=== PATIENT | male | born 1990 | race African-American/Black ===

== ENCOUNTER 2016-07-19 08:55 | Observation (INO) | payer OTHER ==
[2016-07-19] MEDS ORDERED: Ondansetron INJ* 2 MG/ML VIAL IV ONE (09:22)
[2016-07-19] MEDS: NS 0.9% 1000 ML* 2,000 ML IV ONE ×2 (10:25→11:20)
[2016-07-19 10:42] LABS: Hematocrit 53 % (42-52); Hemoglobin 18.3 g/dl (14.0-18.0); Mean Corpuscular HGB Conc 35 g/dl (31-36); Mean Corpuscular Hemoglobin 30 pg (27-31); Mean Corpuscular Volume 86 fL (80-94); Mean Platelet Volume 8 um3 (7.4-10.4); Red Blood Count 6.15 10^6/ul (4.0-5.4); Red Cell Distribution Width 13 % (10.5-15); White Blood Count 9.1 10^3/ul (3.5-10.8)
[2016-07-19 10:58] LABS: Albumin 5.8 g/dL (3.2-5.2); BUN/Creatinine Ratio 17.6 (8-20); C Reactive Protein 16.03 mg/L (< 5.00); Calcium 11.2 mg/dL (8.6-10.3); EGFR African American 86.5 (>60); EGFR Non-African American 67.2 (>60); Globulin 4.1 g/dL (2-4); Potassium 3.2 mmol/L (3.5-5.0); Total Bilirubin 1.1 mg/dL (0.2-1.0); Total Protein 9.9 g/dL (6.4-8.9)
[2016-07-19] MEDS ORDERED: Potassium Chlor TAB* 20 MEQ TAB.ER PO ONE (11:01)
--- NOTE | 2016-07-19 12:57 | ED ---
Influenza-Like Illness - HPI Summary HPI Summary: Patient presents with approximately 5 days of URI symptoms and he began vomiting this AM as well. He has not been eating or drinking well over this time. He has lost weight without trying over the last few months as per mom, and is rather thin in the first place. He denies fever, chills, abdominal or back pain, CP or SOB. No headache or neck pain. - History of Current Complaint Chief Complaint: EDGeneral Time Seen by Provider: 07/19/16 09:11 Hx Obtained From: Patient, Family/Biology Teacher Onset/Duration: Gradual Onset Severity: Severe Associated Signs & Symptoms: Nasal Congestion, Vomiting Related Hx: Possible Flu/Infectious Exposure - Allergy/Home Medications Allergies/Adverse Reactions: Allergies Allergy/AdvReac Type Severity Reaction Status Date / Time Sulfa Antibiotics Allergy Unknown Verified 07/19/16 10:30 Reaction Details PMH/Surg Hx/FS Hx/Imm Hx Respiratory History: Reports: Hx Asthma Infectious Disease History: Yes Infectious Disease History: Denies: Traveled Outside the [place] in Last 30 Days - Family History Known Family History: Positive: None - Social History Lives: With Family Alcohol Use: Rare Substance Use Type: Reports: Marijuana Smoking Status (MU): Light Every Day Tobacco Smoker Cessation Counseling: Patient Advised to Stop Review of Systems Positive: Chills, Fatigue. Negative: Fever Positive: Nasal Discharge Positive: Cough Positive: Vomiting, Nausea All Other Systems Reviewed And Are Negative: Yes Physical Exam Vital Signs On Initial Exam: Initial Vitals Temp Pulse Resp BP Pulse Ox 98.7 F 102 28 138/85 100 07/19/16 08:57 07/19/16 08:57 07/19/16 08:57 07/19/16 08:57 07/19/16 08:57 Diagnostics - Vital Signs Vital Signs Temp Pulse Resp BP Pulse Ox 07/19/16 08:57 98.7 F 102 28 138/85 100 - Laboratory Lab Results: Lab Results 07/19/16 07/19/16 Range/Units 10:20 10:20 WBC 9.1 (3.5-10.8) 10^3/ul RBC 6.15 H (4.0-5.4) 10^6/ul Hgb 18.3 H (14.0-18.0) g/dl Hct 53 H (42-52) % MCV 86 (80-94) fL MCH 30 (27-31) pg MCHC 35 (31-36) g/dl RDW 13 (10.5-15) % Plt Count 296 (150-450) 10^3/ul MPV 8 (7.4-10.4) um3 Neut % (Auto) 83.5 H (38-83) % Lymph % (Auto) 8.2 L (25-47) % [place] % (Auto) 7.0 (1-9) % Eos % (Auto) 0.3 (0-6) % Baso % (Auto) 1.0 (0-2) % Absolute Neuts (auto) 7.6 (1.5-7.7) 10^3/ul Absolute Lymphs (auto) 0.7 L (1.0-4.8) 10^3/ul Absolute Monos (auto) 0.6 (0-0.8) 10^3/ul Absolute Eos (auto) 0 (0-0.6) 10^3/ul Absolute Basos (auto) 0.1 (0-0.2) 10^3/ul Absolute Nucleated RBC 0 10^3/ul Nucleated RBC % 0 Sodium 139 (133-145) mmol/L Potassium 3.2 L (3.5-5.0) mmol/L Chloride 99 L (101-111) mmol/L Carbon Dioxide 21 L (22-32) mmol/L Anion Gap 19 H (2-11) mmol/L BUN 23 (6-24) mg/dL Creatinine 1.31 H (0.67-1.17) mg/dL Est GFR ( Amer) 86.5 (>60) Est GFR (Non-Af Amer) 67.2 (>60) BUN/Creatinine Ratio 17.6 (8-20) Glucose 105 H (70-100) mg/dL Calcium 11.2 H (8.6-10.3) mg/dL Total Bilirubin 1.10 H (0.2-1.0) mg/dL AST 26 (13-39) U/L ALT 24 (7-52) U/L Alkaline Phosphatase 61 (34-104) U/L Troponin I 0.00 (<0.04) ng/mL C-Reactive Protein 16.03 H (< 5.00) mg/L Total Protein 9.9 H (6.4-8.9) g/dL Albumin 5.8 H (3.2-5.2) g/dL Globulin 4.1 H (2-4) g/dL Albumin/Globulin Ratio 1.4 (1-3) Result Diagrams: 07/19/16 10:20 07/19/16 10:20 Lab Statement: Any lab studies that have been ordered have been reviewed, and results considered in the medical decision making process. - EKG No standard instances Cardiac Rate: Tachycardia EKG Rhythm: Sinus Rhythm ST Segment: Normal Ectopy: None Re-Evaluation - Re-Evaluation First Eval Re-Evaluation Time: 10:50 Change: Worse Comment: patient vasovagaled when IV was being placed. He complained of CP and back pain afterwards. Second Eval Re-Evaluation Time: 12:30 Change: Improved Comment: patient feeling somewhat better, but still has nausea and no appetite. Flu Symptom Course/Dx - Diagnoses Differential Diagnosis/HQI/PQRI: Positive: Bronchitis, Influenza, Pneumonia, RSV , Upper Respiratory Infection Provider Diagnoses: Nausea & vomiting - Physician Notifications Discussed Care Of Patient With: Dr. Aponte, emergency department attending; Dr. Santos, hospitalist. Instructed by Provider To: Admit As Observation Discharge - Discharge Plan Condition: Stable Disposition: ADMITTED TO [facility]
[2016-07-19] MEDS ORDERED: Ondansetron INJ* 2 MG/ML VIAL IV PRN (14:11)
[2016-07-19] MEDS ORDERED: Acetaminophen TAB* 325 MG PO PRN (14:11)
[2016-07-19 14:42] LABS: Urine Bacteria Absent (Absent); Urine Bilirubin Negative (Negative); Urine Glucose Negative (Negative); Urine Nitrite Negative (Negative)
--- NOTE | 2016-07-19 14:44 | RAD ---
HISTORY: Upper respiratory infection COMPARISONS: September 19, 2011 VIEWS:1: Single frontal portable view of the chest at 2:23 PM FINDINGS: LINES AND TUBES: None. CARDIOMEDIASTINAL SILHOUETTE: The cardiomediastinal silhouette is normal for portable technique. PLEURA: The costophrenic angles are sharp. No pleural abnormalities are noted. LUNG PARENCHYMA: The lungs are clear. ABDOMEN: The upper abdomen is clear. There is no subphrenic gas. BONES AND SOFT TISSUES: No bone or soft tissue abnormalities are noted. IMPRESSION: NO ACTIVE CARDIOPULMONARY DISEASE.
[2016-07-19] MEDS: NS 0.9% 1000 ML* 1,000 ML IV SCH (16:40)
[2016-07-19] MEDS: Albuterol HFA INHALER* 8 gm MDI INH PRN (18:59)
--- NOTE | 2016-07-19 21:14 | HP ---
HISTORY AND PHYSICAL: DATE OF ADMISSION: 07/19/16 PRIMARY CARE PROVIDER: Dr. Huynh. CHIEF COMPLAINT: Nausea and vomiting. HISTORY OF PRESENT ILLNESS: Sal[place] is a 26-year-old male with a history of mild asthma who presents to [facility] after intractable vomiting for all night. The patient stated that he had upper respiratory infection symptoms for the past 4 days. It was basically nasal congestion and nonproductive cough. Last night, he started having nausea and vomiting with intermittent periumbilical abdominal pain. By the time, he came in to the ED and received Zofran, now his nausea resolved. He has no more abdominal pain. He appears markedly dehydrated and he is going to be placed on observation with a diagnosis of dehydration. PAST MEDICAL HISTORY: 1. History of chronic marijuana use. The patient apparently had hyperemesis syndrome due to marijuana use for which he was evaluated in the ED in the past. 2. History of mild intermittent asthma. 3. 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 MEDICATIONS: Include: 1. Wellbutrin at unknown dose on a daily basis. 2. Albuterol on a p.r.n. basis inhaler. ALLERGIES: SULFA. FAMILY HISTORY: Reviewed and noncontributory. SOCIAL HISTORY: The patient is unemployed. He lives with his mother, Nedra Mullen, as well as another mother, Margoth Forte. Both of the mothers would be surrogates. The patient smokes marijuana multiple times during the daytime. He admits to occasional alcohol use. Denies use of any other drugs and he does not smoke cigarettes. REVIEW OF SYSTEMS: Please see history of present illness. All the remaining 14 systems were reviewed with the patient and were otherwise negative. PHYSICAL EXAMINATION GENERAL: The patient is a very pleasant 26-year-old who is in no acute distress. Awake, alert, and oriented x3. VITAL SIGNS: Blood pressure of 138/85, respiratory rate 28, oxygen saturation 100% on room air, temperature 98.7. HEENT: Head: Atraumatic, normocephalic. Eyes: Pupils are equal, round, reactive to light and accommodation. Oropharynx with slight injection. No exudates. No tonsil enlargement. Mucosa dry. NECK: Supple. No JVD. No bruit bilaterally. RESPIRATORY: Rhonchi at left lower lobe. CARDIOVASCULAR: Regular rate and rhythm. No murmur. ABDOMEN: Soft, nontender. Bowel sounds present in all 4 quadrants. EXTREMITIES: There is no edema. Pulses +2 bilaterally. No clubbing or cyanosis. SKIN: On evaluation of the skin, no ecchymotic areas or rashes noted. LABORATORY DATA AND STUDIED PERFORMED IN THE ED: White blood cell count of 9.1 , hemoglobin of 18.3, hematocrit of 53, and platelets of 296. Sodium was 139, potassium 3.2, chloride 99, carbon dioxide 21, BUN 23, creatinine 1.31. Liver function tests showed mild elevation of bilirubin of 1.1. Calcium of 11.2. C-reactive protein was 16. Total protein of 9.9, albumin of 5.8. Flu test is pending at the time of dictation. Portable chest x-ray is pending at the time of dictation. EKG showed sinus tachycardia with a heart rate of 99 beats per minute with no marked EKG changes. ASSESSMENT AND PLAN: A 26-year-old male with a history of mild asthma who presents after an episode of nausea and vomiting with severe dehydration and subsequent acute renal failure due to that. The patient is going to be placed on overnight observation with intravenous fluids. At this point, flu test is pending, that will be followed up on. In regards to chronic marijuana use, I did estate planning counselor the patient that he may have another bout of hyperemesis syndrome due to marijuana although it appears less likely since this time, he did have a prodromal symptom of upper respiratory infection. For DVT prophylaxis, the patient is low risk and he is going to be encouraged with ambulation. For his history of mild intermittent asthma, currently not wheezing on evaluation. Albuterol is going to be used on a p.r.n. basis. The patient's code is full. Surrogates are his mothers. TIME SPENT: Approximately 50 minutes were spent on admission of this patient. CC: Dr. Huynh * [id number]/[facility] #: [id number] MICHELLE
[2016-07-20] MEDS: NS 0.9% 1000 ML* 1,000 ML IV SCH (01:00)
[2016-07-20 07:14] LABS: BUN/Creatinine Ratio 17.3 (8-20); Calcium 8.9 mg/dL (8.6-10.3); EGFR African American 120.8 (>60)
[2016-07-20 07:41] VITALS: BP 124/62
[2016-07-20] MEDS: Albuterol HFA INHALER* 8 gm MDI INH PRN (07:59)
[2016-07-20] MEDS ORDERED: Pneumococcal *Vac Polyvalent 0.5 ML VIAL IM ONE (09:00)
[2016-07-20] MEDS ORDERED: Influenza VAC *QUAD* 2016-17* 0.5 ML SYRINGE IM ONE (09:00)
--- NOTE | 2016-07-20 09:50 | DCNOTE ---
Patient reports feeling better today. Denies nausea. Tolerating PO, starting with soups. Mild wheezing this AM that improved with albuterol inhaler. On exam, RRR, s1 and s2 present, no m/g/r, abd soft, NTND, BS+, mild end- expiratory wheezing D/C home today with short term PPI, carafate, zofran.
--- NOTE | 2016-07-21 08:06 | DS ---
CC: Dr. Huynh. DISCHARGE SUMMARY: DATE OF : 89 PRIMARY CARE PHYSICIAN: Dr. Huynh. DATE OF ADMISSION: 07/19/16 DATE OF DISCHARGE: 07/20/16 PRINCIPAL DISCHARGE DIAGNOSES: 1. Viral gastroenteritis. 2. Dehydration. 3. Acute kidney injury. STUDIES DURING HOSPITALIZATION: Chest x-ray, impression: No active cardiopulmonary disease. DISCHARGE MEDICATION REGIMEN: 1. Albuterol inhaler 2 puffs inhaled every 6 hours as needed for shortness of breath and wheezing. 2. Omeprazole 20 mg by mouth daily. 3. Zofran 4 mg by mouth every 6 hours as needed for nausea. 4. Carafate 1 g by mouth 3 times daily. 5. Wellbutrin unknown dose one tablet by mouth daily. HPI AND HOSPITAL SUMMARY: Please see the full history and physical by Dr. Patricia Rothman for full d etails. Briefly, Mr. Cerda is a 26-year-old man with past medical history of asthma and kishor rainer use who presented to the hospital with nausea and vomiting. This is in the setting of a rece nt upper respiratory infection. In the emergency department, the patient was found to be tachycardi c and hemo concentrated. He also had some evidence of dehydration on his labs including SHELL. The p atient had a negative flu swab, negative HIV testing. He was given IV fluids and supportive therapy . Following day, he felt much improved. He was able to tolerate p.o. intake with no recurrence of his nausea or vomiting. He will be discharged home with the above medications including short-term PPI and Carafate. The patient will follow up with his PCP as an outpatient. Total time spent on th is discharge 40 minutes. This is the summary of the hospitalization. Please see the full medical record for further details. [id number]/[facility] #: [id number]
== END 2016-07-20 10:35 | disposition home or self-care (01) ==
LOC: ED 08:55 → MED 13:30
PROVIDERS: ADMIT Internal Medicine; ATTEND Hospitalist
DX: E86.0 Dehydration (principal); A08.4 Viral intestinal infection, unspecified; N17.9 Acute kidney failure, unspecified; Z23 Encounter for immunization; F12.90 Cannabis use, unspecified, uncomplicated; J45.909 Unspecified asthma, uncomplicated; Z79.899 Other long term (current) drug therapy; F17.210 Nicotine dependence, cigarettes, uncomplicated; Z88.2 Allergy status to sulfonamides
CPT/HCPCS: 36415; 71010; 80048; 80053; 81003; 81015; 84484; 85025; 86140; 86703; 87502; 90471; 90472; 90686; 90732; 93005; 96361; 96374; 96376; 99284; A9270-GY; G0008; G0009; G0378; J2405